=== PATIENT | male | born 1955 | race Two or more races ===

== ENCOUNTER 2022-01-15 06:12 | Inpatient (IN) | payer OTHER ==
[2022-01-11 10:04] LABS: Urine Bacteria NONE SEEN /hpf (None Seen); Urine Blood Negative /uL (Negative); Urine Specific Gravity 1.011 (1.001-1.035); Urine WBC <1 /hpf (0 - 3)
[2022-01-11 10:06] LABS: Basophils # (auto) 0 10 ^3/uL (0-0.2); Basophils % (auto) 0.7 % (0.0-2.0); Eosinophils # (auto) 0.2 10 ^3/uL (0-0.8); Eosinophils % (auto) 2.2 % (0.0-7.0); Hematocrit 44.2 % (41.0-53.0); Hemoglobin 15.4 g/dL (13.5-17.5); Lymphocytes # (auto) 2.3 10 ^3/uL (0.4-5.4); Lymphocytes % (auto) 31.2 % (10.0-50.0); Mean Corpuscular Hemoglobin 29.6 pg (28.0-32.0); Mean Corpuscular Hgb Conc. 34.8 g/dL (32.0-36.0); Mean Corpuscular Volume 85.1 fL (80.0-100.0); Monocytes # (auto) 0.6 10 ^3/uL (0-1.3); Monocytes % (auto) 8.3 % (0.0-12.0); Neutrophils # (auto) 4.2 10 ^3/uL (1.6-8.6); Neutrophils % (auto) 57.6 % (37.0-80.0); Red Blood Cells 5.19 10^6/uL (4.5-5.90); Red Cell Distribution Width 14.7 % (11.8-14.3); White Blood Cell 7.3 10^3/uL (4.4-10.8)
[2022-01-11 10:15] LABS: INR 0.98 (0.9-1.15); Partial Thromboplastin Time 25.7 sec (23.6-33.0)
[2022-01-11 10:25] LABS: Albumin 4.1 g/dL (3.4-5.0); Potassium 4.2 mmol/L (3.5-5.1)
[2022-01-11 10:31] LABS: BUN/Creatinine Ratio 14.4; Bilirubin, Total 0.4 mg/dL (0.2-1.0); Total Protein 7.5 g/dL (6.4-8.2)
[~2022-01-15] VITALS: Ht 185.4 cm; Wt 127.5 kg
[2022-01-15] VITALS (15 sets, daily range): BP systolic 100–122; BP diastolic 62–78
[~2022-01-15 06:12] MED LIST: BENA20TA14 PO; HYDR25TA4 PO
[2022-01-15] MEDS ORDERED: TRANEXAMIC ACID 20 ML ONE (06:43)
[2022-01-15] MEDS ORDERED: MORPHINE SULF PF 5 MG/10 ML VIAL ONE ×2 (06:44→06:47)
[2022-01-15] MEDS ORDERED: fentaNYL CITRATE 100 MCG/2 ML VL ONE (06:44)
[2022-01-15] MEDS ORDERED: VANCOMYCIN HCL 1000 MG VL ONE (06:44)
[2022-01-15] MEDS ORDERED: KETOROLAC TROMETH 30 MG/ML 1ML VIAL ONE (06:44)
[2022-01-15] MEDS ORDERED: ACETAMINOPHEN IV 1000 MG/100ML (10MG/ML) IV ONE (06:45)
[2022-01-15] MEDS ORDERED: ONDANSETRON HCL 4 MG/2 ML VIAL ONE (06:45)
[2022-01-15] MEDS ORDERED: EPINEPHrine HCL 1 MG/1 ML AMP ONE (06:45)
[2022-01-15] MEDS ORDERED: PREGABALIN CAPSULE 75 MG CAP PO ONE (06:45)
[2022-01-15] MEDS ORDERED: SODIUM CHLORIDE LOCK 10 ML ONE (06:45)
[2022-01-15] MEDS ORDERED: BUPIVACAINE/DEXTROSE MPF 0.75% 2 ML AMP IT ONE (06:45)
[2022-01-15] MEDS ORDERED: DexAMETHasone SOD PHOS 10MG/1ML VIAL INJ ONE (06:45)
[2022-01-15] MEDS ORDERED: CELECOXIB 100 MG CAP PO ONE (06:45)
[2022-01-15] MEDS ORDERED: MIDAZOLAM HCL 2MG/2ML 2ml VIAL (1mg/ml) ONE (06:45)
[2022-01-15] MEDS ORDERED: ACETAMINOPHEN IV 100 ML IV ONE (06:48)
[2022-01-15] MEDS ORDERED: CELECOXIB 100 MG CAP ONE (06:48)
[2022-01-15] MEDS ORDERED: ceFAZolin 1GM/50ML 100 ML IV ONE (06:48)
[2022-01-15] MEDS ORDERED: TETRACAINE 1% INJ 2 ML VIAL IJ ONE (06:48)
[2022-01-15] MEDS ORDERED: BUPIVACAINE 0.25% INJ 50ML VIAL ONE (06:51)
[2022-01-15] MEDS ORDERED: PREGABALIN CAPSULE 75 MG CAP ONE (06:58)
[2022-01-15] MEDS ORDERED: PROPOFOL 10 MG/ML 20 ML IV ONE (07:02)
[2022-01-15] MEDS ORDERED: ceFAZolin 1GM/50ML 50 ML IV SCH (08:45)
[2022-01-15] MEDS ORDERED: MORPHINE SULFATE INJECTION 2 MG/ML SYRG IV PRN (08:45)
[2022-01-15] MEDS ORDERED: ACETAMINOPHEN 325 MG TAB PO PRN (08:45)
[2022-01-15] MEDS ORDERED: NITROGLYCERIN 0.4 MG SL TAB SL PRN (08:45)
[2022-01-15] MEDS ORDERED: ONDANSETRON HCL 4 MG/2 ML VIAL IV PRN ×2 (08:45→09:00)
[2022-01-15] MEDS ORDERED: BISACODYL 5 MG EC TAB PO PRN (08:45)
[2022-01-15] MEDS ORDERED: diphenhdrAMINE HCL 25 MG CAP PO PRN (08:45)
[2022-01-15] MEDS: LACTATED RINGER'S 1,000 ML IV SCH ×2 (08:50→18:26)
[2022-01-15] MEDS ORDERED: NALOXONE HCL 0.4 MG/ML VIAL IV PRN (09:00)
[2022-01-15] MEDS ORDERED: MORPHINE SULFATE 4 MG/ML SYR/VIAL IV PRN (09:00)
[2022-01-15] MEDS ORDERED: diphenhdrAMINE HCL 50 MG/1 ML VL IV PRN (09:00)
[2022-01-15] MEDS ORDERED: HYDROmorphone HCL 2 MG/ML VL IV PRN (09:00)
[2022-01-15] MEDS ORDERED: HCTZ 25 MG TAB PO SCH (10:00)
[2022-01-15] MEDS ORDERED: BENAZEPRIL HCL 10 MG TAB PO SCH (10:00)
[2022-01-15] MEDS: oxyCODONE ER 10 MG TAB PO SCH ×2 (11:26→22:25)
[2022-01-15] MEDS: DOCUSATE SOD 100 MG CAP PO SCH ×2 (11:26→22:25)
[2022-01-15] MEDS: PANTOPRAZOLE 40 MG TAB PO SCH (11:26)
[2022-01-15] MEDS: ceFAZolin 1GM/50ML 50 ML IV SCH ×2 (13:26→18:26)
[2022-01-15] MEDS: SODIUM CHLOR 0.9% PF (SALINE LOCK) 10ML VIAL/SYR IV SCH ×2 (13:26→22:25)
[2022-01-15] MEDS: KETOROLAC TROMETH 30 MG/ML 1ML VIAL IV SCH ×2 (13:26→22:25)
[2022-01-15] MEDS: OXYCODONE W/ ACETAMINOPHEN 5/325MG TABLET PO PRN (18:26)
[2022-01-16] VITALS (13 sets, daily range): BP systolic 97–146; BP diastolic 67–92
[2022-01-16] MEDS: ceFAZolin 1GM/50ML 50 ML IV SCH (01:17)
[2022-01-16] MEDS: LACTATED RINGER'S 1,000 ML IV SCH (04:45)
[2022-01-16 05:22] LABS: Hematocrit 35.7 % (41.0-53.0); Hemoglobin 12.5 g/dL (13.5-17.5)
[2022-01-16] MEDS: SODIUM CHLOR 0.9% PF (SALINE LOCK) 10ML VIAL/SYR IV SCH ×3 (05:22→21:55)
[2022-01-16] MEDS: KETOROLAC TROMETH 30 MG/ML 1ML VIAL IV SCH (05:22)
[2022-01-16] MEDS: OXYCODONE W/ ACETAMINOPHEN 5/325MG TABLET PO PRN ×2 (05:23→18:37)
[2022-01-16 05:46] LABS: Potassium 4.1 mmol/L (3.5-5.1)
[2022-01-16 05:53] LABS: Albumin 3.3 g/dL (3.4-5.0); BUN/Creatinine Ratio 24.2; Calcium 8.2 mg/dL (8.5-10.1)
[2022-01-16 05:56] LABS: Bilirubin, Total 0.3 mg/dL (0.2-1.0)
[2022-01-16] MEDS: oxyCODONE ER 10 MG TAB PO SCH ×2 (09:51→21:56)
[2022-01-16] MEDS: PANTOPRAZOLE 40 MG TAB PO SCH (09:51)
[2022-01-16] MEDS: DOCUSATE SOD 100 MG CAP PO SCH ×2 (09:52→21:56)
[2022-01-16] MEDS: ENOXAPARIN SOD 40 MG/0.4 ML SYRINGE SC SCH (09:52)
[2022-01-16] MEDS ORDERED: LACTATED RINGER'S 1,000 ML IV SCH (12:00)
[2022-01-16] MEDS: HYDROmorphone HCL 2 MG/ML VL IV PRN ×5 (13:15→22:45)
[2022-01-17] MEDS: HYDROmorphone HCL 2 MG/ML VL IV PRN ×4 (01:04→09:16)
[2022-01-17] MEDS: OXYCODONE W/ ACETAMINOPHEN 5/325MG TABLET PO PRN (02:30)
[2022-01-17 05:00] VITALS: BP 147/92
[2022-01-17] MEDS: SODIUM CHLOR 0.9% PF (SALINE LOCK) 10ML VIAL/SYR IV SCH (05:55)
[2022-01-17 07:56] LABS: Hematocrit 31.8 % (41.0-53.0); Hemoglobin 11.3 g/dL (13.5-17.5)
[2022-01-17 08:00] VITALS: BP 148/89
[2022-01-17] MEDS: DOCUSATE SOD 100 MG CAP PO SCH (09:10)
[2022-01-17] MEDS: oxyCODONE ER 10 MG TAB PO SCH (09:11)
[2022-01-17] MEDS: PANTOPRAZOLE 40 MG TAB PO SCH (09:11)
[2022-01-17] MEDS: ENOXAPARIN SOD 40 MG/0.4 ML SYRINGE SC SCH (09:11)
[2022-01-17 09:46] VITALS: BP 122/65
== END 2022-01-17 12:18 | disposition home health service (06) | DRG 470 ==
LOC: SUR 06:12 → OVERFLOW 08:43 → TELE-WESTW 10:08 → WEST WING 01-16 12:28
PROVIDERS: ADMIT Orthopaedic Surgery Adult Reconstructive Orthopaedic Surgery; ATTEND Internal Medicine
PROC: 8E0YXBZ Computer Assisted Procedure of Lower Extremity (ICD-10-PCS; 2022-01-15)
PROC: 0SRC0J9 Replacement of Right Knee Joint with Synthetic Substitute, Cemented, Open Approach (ICD-10-PCS; principal; 2022-01-15 07:12)
DX: M17.11 Unilateral primary osteoarthritis, right knee (principal); I10 Essential (primary) hypertension; E66.9 Obesity, unspecified; Z68.37 Body mass index [BMI] 37.0-37.9, adult; Z20.822 Contact with and (suspected) exposure to COVID-19
CPT/HCPCS: 36415; 73562; 80053; 81001; 85014; 85018; 85025; 85610; 85730; 86850; 86900; 86901; 97110; 97116; 97163; 97530; G0378; J0131; J0171; J0690; J1100; J1885; J2250; J2405; J2704; J3490

== ENCOUNTER 2022-07-30 06:06 | Inpatient (IN) | payer OTHER ==
[2022-07-27 10:48] LABS: Urine WBC None Seen /hpf (0 - 3)
[2022-07-27 10:50] LABS: Basophils # (auto) 0 10 ^3/uL (0-0.2); Basophils % (auto) 0.3 % (0.0-2.0); Eosinophils # (auto) 0.1 10 ^3/uL (0-0.8); Eosinophils % (auto) 1.5 % (0.0-7.0); Hemoglobin 14.5 g/dL (13.5-17.5); Lymphocytes % (auto) 35.2 % (10.0-50.0); Mean Corpuscular Hemoglobin 28.4 pg (28.0-32.0); Monocytes # (auto) 0.6 10 ^3/uL (0-1.3); Monocytes % (auto) 7.4 % (0.0-12.0); Neutrophils # (auto) 4.7 10 ^3/uL (1.6-8.6); Neutrophils % (auto) 55.6 % (37.0-80.0); Nucleated Red Blood Cells % 0.1 %; Red Blood Cells 5.12 10^6/uL (4.5-5.90); Red Cell Distribution Width 14.8 % (11.8-14.3); White Blood Cell 8.5 10^3/uL (4.4-10.8)
[2022-07-27 11:10] LABS: INR 0.93 (0.9-1.15); Partial Thromboplastin Time 25.9 sec (24.6-33.4)
[2022-07-27 11:14] LABS: Urine Bacteria NONE SEEN /hpf (None Seen); Urine Blood TRACE /uL (Negative); Urine Specific Gravity 1.009 (1.001-1.035)
[2022-07-27 11:42] LABS: Potassium 4.2 mmol/L (3.5-5.1)
[2022-07-27 12:03] LABS: Albumin 4.1 g/dL (3.4-5.0); Bilirubin, Total 0.3 mg/dL (0.2-1.0); Calcium 8.7 mg/dL (8.5-10.1); Total Protein 7.8 g/dL (6.4-8.2)
[~2022-07-30] VITALS: Ht 190.5 cm; Wt 107.9 kg
[2022-07-30] VITALS (16 sets, daily range): BP systolic 102–131; BP diastolic 61–93
[2022-07-30] MEDS ORDERED: TRANEXAMIC ACID 20 ML ONE (06:51)
[2022-07-30] MEDS ORDERED: BUPIVACAINE W/ EPINEPH 0.25% INJ 50ML MDV ONE (06:51)
[2022-07-30] MEDS ORDERED: VANCOMYCIN HCL 1000 MG VL ONE (06:52)
[2022-07-30] MEDS ORDERED: KETOROLAC TROMETH 30 MG/ML 1ML VIAL ONE (06:53)
[2022-07-30] MEDS ORDERED: TETRACAINE 1% INJ 2 ML VIAL IJ ONE (06:58)
[2022-07-30] MEDS ORDERED: MORPHINE SULF PF 5 MG/10 ML VIAL ONE (07:02)
[2022-07-30] MEDS ORDERED: MIDAZOLAM HCL 2MG/2ML 2ml VIAL (1mg/ml) ONE (07:02)
[2022-07-30] MEDS ORDERED: fentaNYL CITRATE 100 MCG/2 ML VL ONE (07:02)
[2022-07-30] MEDS ORDERED: SODIUM CHLORIDE LOCK 20 ML ONE (07:02)
[2022-07-30] MEDS ORDERED: PROPOFOL 10 MG/ML 20 ML IV ONE ×2 (07:02→10:40)
[2022-07-30] MEDS ORDERED: DexAMETHasone SOD PHOS 10MG/1ML VIAL INJ ONE (07:02)
[2022-07-30] MEDS ORDERED: EPINEPHrine HCL 1 MG/1 ML AMP ONE (07:02)
[2022-07-30] MEDS ORDERED: ACETAMINOPHEN IV 100 ML IV ONE (07:03)
[2022-07-30] MEDS ORDERED: ceFAZolin 1GM/50ML 100 ML IV ONE (07:03)
[2022-07-30] MEDS ORDERED: CELECOXIB 100 MG CAP ONE (07:03)
[2022-07-30] MEDS ORDERED: PREGABALIN CAPSULE 75 MG CAP ONE (07:03)
[2022-07-30] MEDS ORDERED: MORPHINE SULFATE 4 MG/ML SYR/VIAL IV PRN (08:45)
[2022-07-30] MEDS ORDERED: diphenhdrAMINE HCL 50 MG/1 ML VL IV PRN (08:45)
[2022-07-30] MEDS ORDERED: HYDROmorphone HCL 2 MG/ML VL/or syr IV PRN ×2 (08:45)
[2022-07-30] MEDS ORDERED: METOCLOPRAMIDE HCL 5MG/ml INJ 2ml VIAL IV PRN (08:45)
[2022-07-30] MEDS ORDERED: NALOXONE HCL 0.4 MG/ML VIAL IV PRN (08:45)
[2022-07-30] MEDS: ceFAZolin 1GM/50ML 50 ML IV SCH ×3 (09:15→21:33)
[2022-07-30] MEDS ORDERED: NITROGLYCERIN 0.4 MG SL TAB SL PRN (09:15)
[2022-07-30] MEDS ORDERED: IBUPROFEN 800 MG TAB PO PRN (09:15)
[2022-07-30] MEDS ORDERED: OXYCODONE W/ ACETAMINOPHEN 5/325MG TABLET PO PRN (09:15)
[2022-07-30] MEDS ORDERED: ACETAMINOPHEN 325 MG TAB PO PRN (09:15)
[2022-07-30] MEDS: LACTATED RINGER'S 1,000 ML IV SCH ×2 (09:15→19:15)
[2022-07-30] MEDS ORDERED: ONDANSETRON HCL 4 MG/2 ML VIAL IV PRN (09:15)
[2022-07-30] MEDS ORDERED: MORPHINE SULFATE INJ 2 MG/ml SYRG IV PRN (09:15)
[2022-07-30] MEDS: HCTZ 25 MG TAB PO SCH (10:00)
[2022-07-30] MEDS: PATIENTS OWN MEDICATION (Benazepril Hcl 20 MG) PO SCH (10:00)
[2022-07-30] MEDS: ENOXAPARIN SOD 40 MG/0.4 ML SYRINGE SC SCH (10:00)
[2022-07-30] MEDS: oxyCODONE ER 10 MG TAB PO SCH ×2 (10:00→22:00)
[2022-07-30] MEDS: DOCUSATE SOD 100 MG CAP PO SCH ×2 (10:24→21:34)
[2022-07-30] MEDS: PANTOPRAZOLE 40 MG TAB PO SCH (10:24)
[2022-07-30] MEDS: HYDROmorphone HCL 2 MG/ML VL/or syr IV PRN ×2 (13:25→20:09)
[2022-07-30] MEDS ORDERED: ONDANSETRON HCL 4 MG/2 ML VIAL IV ONE (13:59)
[2022-07-30] MEDS: SODIUM CHLOR 0.9% PF (SALINE LOCK) 10ML VIAL/SYR IV SCH ×2 (14:29→21:33)
[2022-07-30] MEDS: OXYCODONE W/ ACETAMINOPHEN 5/325MG TABLET PO PRN ×2 (16:04→22:16)
[2022-07-31] VITALS (17 sets, daily range): BP systolic 114–137; BP diastolic 76–89
[2022-07-31 04:00] LABS: Hematocrit 37.8 % (41.0-53.0); Hemoglobin 12.6 g/dL (13.5-17.5)
[2022-07-31 04:22] LABS: Albumin 3.5 g/dL (3.4-5.0); BUN/Creatinine Ratio 20.9; Calcium 8.6 mg/dL (8.5-10.1); Potassium 4.7 mmol/L (3.5-5.1)
[2022-07-31 04:31] LABS: Bilirubin, Total 0.3 mg/dL (0.2-1.0); Total Protein 6.1 g/dL (6.4-8.2)
[2022-07-31] MEDS: LACTATED RINGER'S 1,000 ML IV SCH (05:15)
[2022-07-31] MEDS: SODIUM CHLOR 0.9% PF (SALINE LOCK) 10ML VIAL/SYR IV SCH ×2 (06:08→13:45)
[2022-07-31] MEDS: HYDROmorphone HCL 2 MG/ML VL/or syr IV PRN (06:40)
[2022-07-31] MEDS: oxyCODONE ER 10 MG TAB PO SCH (09:05)
[2022-07-31] MEDS: HCTZ 25 MG TAB PO SCH (09:06)
[2022-07-31] MEDS: PANTOPRAZOLE 40 MG TAB PO SCH (09:06)
[2022-07-31] MEDS: DOCUSATE SOD 100 MG CAP PO SCH (09:08)
[2022-07-31] MEDS: ENOXAPARIN SOD 40 MG/0.4 ML SYRINGE SC SCH (09:09)
[2022-07-31] MEDS: PATIENTS OWN MEDICATION (Benazepril Hcl 20 MG) PO SCH (10:00)
[2022-07-31] MEDS: OXYCODONE W/ ACETAMINOPHEN 5/325MG TABLET PO PRN (13:09)
== END 2022-07-31 14:00 | disposition home or self-care (01) | DRG 470 ==
LOC: SUR 06:06 → OVERFLOW 09:05 → TELE 09:54 → TELE-WESTW 10:54
PROVIDERS: ADMIT Orthopaedic Surgery Adult Reconstructive Orthopaedic Surgery; ATTEND Internal Medicine
PROC: 8E0YXBZ Computer Assisted Procedure of Lower Extremity (ICD-10-PCS; 2022-07-30)
PROC: 0SRD0J9 Replacement of Left Knee Joint with Synthetic Substitute, Cemented, Open Approach (ICD-10-PCS; principal; 2022-07-30 07:27)
DX: M17.12 Unilateral primary osteoarthritis, left knee (principal); Z20.822 Contact with and (suspected) exposure to COVID-19; I10 Essential (primary) hypertension; E66.9 Obesity, unspecified; Z68.29 Body mass index [BMI] 29.0-29.9, adult
CPT/HCPCS: 36415; 73562; 80053; 81001; 85014; 85018; 85025; 85610; 85730; 86850; 86900; 86901; G0378; J0131; J0171; J0690; J1100; J1885; J2250; J2405; J2704

== ENCOUNTER 2024-08-23 14:52 | Emergency (ER) | payer BC, OTHER ==
[~2024-08-23] VITALS: Ht 154.9 cm; Wt 111.3 kg
[~2024-08-23 14:52] MED LIST changes: +BENA-36 PO; -BENA20TA14 PO
[2024-08-23 17:06] VITALS: BP 140/80; PULSE 86; RESP 16; O2SAT 98
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
[2024-08-23] MEDS: HYDROcodone-ACET 10/325MG TAB PO ONE (17:45)
[2024-08-23] MEDS: ceFAZolin 1GM/50ML 50 ML IV ONE (17:45)
--- NOTE | 2024-08-23 18:40 | ED.PDOC ---
HPI Comments 68y M who presents to the ED for chief complaint of upper extremity pain. Pt states he was lifting coffee table over earlier this afternoon at approx 2 PM and states his L 4th digit got caught between the table and 2x4 piece of wood and his L finger got crushed. Pt applied pressure dressing and came to the ED. Pt in the ED, has bleeding controlled with pressure dressing applied but is noted to have no finger nail to digit. Pt otherwise able to move surrounding fingers on L hand. Pt has noted stable vitals in the ED. Pt states last tetanus was 1 year prior. Pt otherwise denies any other symptoms at this time. Chief Complaint: Upper Extremity Time Seen by MD: 18:35 Reviewed Notes: Nurses Notes, Medications, Allergies Allergies: Coded Allergies: NO KNOWN ALLERGIES (Unverified , 01/11/22) Home Meds Reported Medications Benazepril Hcl (Benazepril Hcl) 20 Mg Tab, 20 MG PO DAILY, TAB 01/11/22 Hydrochlorothiazide (Hydrochlorothiazide) 25 Mg Tab, 25 MG PO, TAB 01/11/22 Information Source: Patient, Spouse Mode of Arrival: Ambulatory Severity: Moderate Severity of Laceration: Controlled Bleeding Complexity: Intermediate Timing: Minutes, Hours Prehospital treatment: None Laceration Location: Digit #4 (Left ) Mechanism: Wood Last Tetanus: UTD Laceration Length (cm): 4 Skin Type: Linear Depth of Injury: Skin Tendon Injury: 0% Capillary Refill: < 3 seconds Tender: Moderate Discharge: Clear Associated Signs and Symptoms: None Past Medical History PAST MEDICAL HISTORY: HTN Surgical History (Other): L knee surgery, carpel tunnel surgery, Family History Family History: Reviewed,noncontributory to illness Social History Smoker: Non-Smoker Alcohol: Occasionally Drugs: Denies Drug Use Lives In: Home Constitutional: denies: chills, diaphoresis, fatigue, fever, malaise, sweats, weakness, others EENTM: denies: blurred vision, double vision, ear bleeding, ear discharge, ear drainage, ear pain, ear ringing, eye pain, eye redness, hearing loss, mouth pain, mouth swelling, nasal discharge, nose bleeding, nose congestion, nose pain, photophobia, tearing, throat pain, throat swelling, voice changes, others Respiratory: denies: cough, hemoptysis, orthopnea, SOB at rest, shortness of breath, SOB with excertion, stridor, wheezing, others Cardiovascular: denies: chest pain, dizzy spells, diaphoresis, Dyspnea on exertion, edema, irregular heart beat, left arm pain, lightheadedness, palpitations, PND, syncope, others Gastrointestinal: denies: abdomen distended, abdominal pain, blood streaked bowels, constipated, diarrhea, dysphagia, difficulty swallowing, hematemesis, melena, nausea, poor appetite, poor fluid intake, rectal bleeding, rectal pain, vomiting, others Genitourinary: denies: burning, dysuria, flank pain, frequency, hematuria, incontinence, penile discharge, penile sore, pain, testicle pain, testicle swelling, urgency, others Neurological: denies: dizziness, fainting, headache, left sided numbness, left sided weakness, numbness, paresthesia, pre-existing deficit, right sided numbness, right sided weakness, seizure, speech problems, tingling, tremors, weakness, others Musculoskeletal: denies: back pain, gout, joint pain, joint swelling, muscle pain, muscle stiffness, neck pain, others Integumetry: reports: laceration (L 4th finger); denies: bruises, change in color, change in hair/nails, dryness, lesions, lumps, rash, wounds, others Allergic/Immunocompromised: denies: Difficulty Healing, Frequent Infections, Hives, Itching, others Hematologic/Lymphatic: denies: anemia, blood clots, easy bleeding, easy bruising, swollen glands, others Endocrine: denies: excessive hunger, excessive sweating, excessive thirst, excessive urination, flushing, intolerance to cold, intolerance to heat, unexplained weight gain, unexplained weight loss, others Psychiatric: denies: anxiety, bipolar disorder, depression, hopeless, panic disorder, schizophrenia, sleepless, suicidal, others All Other Systems: Reviewed and Negative Physical Exam General Appearance: Mild Distress HEENT: Normal ENT Inspection, Pharynx Normal, TMs Normal Neck: Full Range of Motion, Non-Tender, Normal, Normal Inspection Respiratory: Chest Non-Tender, Lungs Clear, No Accessory Muscle Use, No Respiratory Distress, Normal Breath Sounds Cardiovascular: No Edema, No JVD, No Murmur, No Gallop, Normal Peripheral Pulses, Regular Rate/Rhythm Breast Exam: Deferred Gastrointestinal: No Organomegaly, Non Tender, No Pulsatile Mass, Normal Bowel Sounds, Soft Genitalia: Deferred Pelvic: Deferred Rectal: Deferred Extremities: No calf tenderness, Normal capillary refill, No pedal edema Musculoskeletal : Location: Left Extremity Location: Finger 4 (Laceration with partial amputation at the distal portion of the 4th digit) Apperance: Limited ROM, Tenderness: Moderate Neurologic: Alert, billet heater II-XII nml as Tested, No Motor Deficits, Normal Affect, Normal Mood, No Sensory Deficits Cerebellar Function: Normal Reflexes: Normal Skin: Dry, Normal Color, Warm Lymphatic: No Adenopathy Was a procedure done? Was a procedure done?: Yes Sedation Sedation?: No Laceration Repair : Location Left hand 4th digit Length 4 cm Anesthetic: Lidocaine Laceration Repair Prep: Saline Laceration Repair Wound Comple: epidermis/dermis repair Laceration Repair: Number of sutures (Seven sutures), Layers Closed (One layer), Size (4-0 Ethilon), Nylon Informed consent obtained: Yes Risks, benefits, and alternati: Yes Differential diagnosis Suture Removal: Cellulitis Generic Laceration: Fracture, Tendon Injury, Abrasion/Contusion, Laceration, Avulsion, Amputation X-Ray, Labs, Meds, VS Vital Signs Date Time Temp Pulse Resp B/P (MAP) Pulse Ox O2 Delivery O2 Flow Rate FiO2 08/23/24 17:06 86 18 140/80 (100) 97 08/23/24 17:06 86 16 98 Room Air* 0 21 08/23/24 15:56 98.0 85 17 132/83 (99) 95 Current Medications Medications (Trade) Dose Ordered Sig/Alonzo Route Start Time Stop Time Status Last Admin Cefazolin Sodium 50 ml @ 100 mls/hr ONCE ONCE IV 08/23/24 17:45 08/23/24 18:14 DC 08/23/24 17:45 Acetaminophen/ Hydrocodone Bitart ([place] 10/325MG Tab) 1 tab ONCE ONCE PO 08/23/24 17:45 08/23/24 17:46 DC 08/23/24 17:45 PROCEDURE(s): LHAN - L HAND 3V XRAY Findings/Impression: 3 views of the left hand. Minimally displaced trasverse fracture of the 4th distal phalanx with mild soft tissue edema and soft tissue injury. There is no evidence of dislocation, blastic, or lytic lesions. No radiopaque foreign bodies. The patient has suffered a fracture. The patient was given Ancef 1 g IV piggyback The patient is also receiving clindamycin at home. The patient was also given [place] one tab p.o. At this time, the patient will be admitted at this time. The patient will follow up with the orthopedic surgeon The patient tolerated the sutures The patient was splinted Time of 1ST Reevaluation: 19:05 Reevaluation 1ST: Unchanged Patient Education/Counseling: Diagnosis, Treatment, Prognosis, Need For Follow Up Family Education/Counseling: Diagnosis, Treatment, Prognosis, Need For Follow Up Departure 1 Departure Time of Disposition: 21:13 Impression: Primary Impression: Laceration of left hand Qualified Codes: S61.412A - Laceration without foreign body of left hand, initial encounter Additional Impressions: Amputation of finger Qualified Codes: S68.119A - Complete traumatic metacarpophalangeal amputation of unspecified finger, initial encounter Phalanx, distal fracture of finger Qualified Codes: S62.665B - Nondisplaced fracture of distal phalanx of left ring finger, initial encounter for open fracture Disposition: HOME / SELF CARE / HOMELESS Condition: Fair Discharged With: Self, Spouse Critical Care Note Critical Care Time?: No Stability Stability form required: No Heart Score Heart Score: Heart Score Response (Comments) Value History N/A 0 EKG N/A 0 Age N/A 0 Risk Factors N/A 0 Troponin N/A 0 Total 0 I personally scribed for LINDSEY LOPEZ MD ([email or web address]) on 08/23/24 at 18:40. Electronically submitted by Arcadio Enamorado ([email or web address]). LINDSEY LOPEZ MD Aug 23, 2024 18:40
[2024-08-23] MEDS: LIDOCAINE 1% (LOCAL ANESTH.) PF 5ml SDV ID ONE (19:26)
== END 2024-08-23 22:15 | disposition home or self-care (01) ==
LOC: ER 14:52
DX: S62.635A Displaced fracture of distal phalanx of left ring finger, initial encounter for closed fracture (principal); S61.412A Laceration without foreign body of left hand, initial encounter; I10 Essential (primary) hypertension; Z98.890 Other specified postprocedural states; X58.XXXA Exposure to other specified factors, initial encounter; Y93.89 Activity, other specified; Y92.89 Other specified places as the place of occurrence of the external cause; Y99.8 Other external cause status
CPT/HCPCS: 12002; 29130; 73130; 96365; 99284; J0690